=== PATIENT | female | born 1950 | race Caucasian/White ===

== ENCOUNTER 2017-04-19 13:17 | Emergency (ER) | payer MEDICARE, OTHER | END 2017-04-19 16:02 | disposition home or self-care (01) | LOC: FER 13:17 | DX: S39.012A Strain of muscle, fascia and tendon of lower back, initial encounter (principal); I10 Essential (primary) hypertension; E11.9 Type 2 diabetes mellitus without complications; F17.210 Nicotine dependence, cigarettes, uncomplicated; Z88.5 Allergy status to narcotic agent; Z79.899 Other long term (current) drug therapy; X58.XXXA Exposure to other specified factors, initial encounter; Y92.009 Unspecified place in unspecified non-institutional (private) residence as the place of occurrence of the external cause | CPT/HCPCS: 72170; J1885 ==

== ENCOUNTER 2022-03-07 08:17 | Emergency (ER) | payer OTHER ==
[~2022-03-07 08:17] MED LIST: CEPHALEXIN500 MG PO
[2022-03-07 09:33] LABS: BASOPHIL 0.4 % (0-2); EOSINOPHIL 2.1 % (0-7); HCT 43.1 % (37.0-47.0); HGB 13.7 g/dl (12.5-16.0); LYMPHOCYTE 32.4 % (15-48); MCHC 31.8 g/dL (32.0-36.0); MCV 94.5 fL (78.0-100.0); MONOCYTE 6.5 % (0-12); MPV 11.3 fL (6.0-9.5); NEUTROPHIL 58.4 % (41-80); NRBC 0; PLT 157 K/uL (150-400); RBC 4.56 M/uL (4.20-5.40); RDW 13.1 % (11.5-14.0); WBC 8.5 K/uL (4.0-10.5)
[2022-03-07 09:37] LABS: INR 0.99 (0.9-1.2); PROTHROMBIN TIME 12.8 SECONDS (11.9-13.9); PTT 34.9 SECONDS (24.9-34.6)
[2022-03-07 10:00] LABS: ALBUMIN 3.6 g/dL (3.4-5.0); BILIRUBIN - TOTAL 0.5 mg/dL (0.2-1.0); BUN/CREAT RATIO (CALC) 21.4 RATIO; CREATININE 0.84 mg/dL (0.51-0.95); GLOBULIN (CALCULATION) 3.7 g/dL; POTASSIUM 3.9 mmol/L (3.5-5.1); TOTAL PROTEIN 7.3 g/dL (6.4-8.2)
[2022-03-07 10:06] LABS: LACTIC ACID 0.6 mmol/L (0.4-1.9)
[2022-03-07 10:14] LABS: CORONAVIRUS 2019 SARS-COV-2 NEGATIVE (NEGATIVE); INFLUENZA A NAA NEGATIVE (NEGATIVE)
== END 2022-03-07 18:40 | disposition left against medical advice (07) ==
LOC: FER 08:17
PROVIDERS: Emergency Medicine
DX: R00.1 Bradycardia, unspecified (principal); E11.9 Type 2 diabetes mellitus without complications; J44.9 Chronic obstructive pulmonary disease, unspecified; F17.200 Nicotine dependence, unspecified, uncomplicated; Z53.29 Procedure and treatment not carried out because of patient's decision for other reasons; Z20.822 Contact with and (suspected) exposure to COVID-19
CPT/HCPCS: 36415; 36600; 71045; 71275; 80053; 82803; 83605; 83880; 84145; 84484; 85025; 85610; 85730; 87040; 93005; 94640; Q9967; U0002